=== PATIENT | male | born 2000 | race African-American/Black ===

== ENCOUNTER 2022-10-22 08:17 | Outpatient (AMB) | payer OTHER, SELFPAY ==
[2022-10-22 08:29] VITALS: BP 138/85; PULSE 78; BMI 31.7
--- NOTE | 2022-10-22 08:29 | MHC.OFFVIS ---
Intake Vital Signs 10/22/22 08:29 Height 6 ft 2 in Weight 247 lb BMI 31.7 BP 138/85 Blood Pressure Location Rt brachial Position Sitting Pulse 78 Intake Visit Reasons: Consult for muscle biopsy Intake Note: Patient here for possible muscle bx. Was recently diagnosed with Rhabdomyolysis. Discharge from hospital 4d ago. Feels sore and experiencing fatigue. Patient with hx of sickle cell anemia. Since rhabdo diagnosis football was placed on hold. 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 He has his 3 of sickle cell trait and hypertension. He denies symptoms prior to this year while playing football. Symptoms began in August after training. After rest and relaxation for approximately 1 week the symptoms improved. He once again began to train and was doing fine until last week well training during the hot weather, again developed diffuse muscle cramping starting in the legs extending into the abdomen than the entire body. He was brought in, cooled down and subsequently sent to [facility]. The patient was found to have stage II kidney disease in August with an elevated creatinine kinase level of 1190. Creatinine was 1.69, BUN 20, calcium 10.4, AST 41. He was subsequently admitted to [facility] for 2 days and diagnosed with rhabdomyolysis. He presents today to discuss possible muscle biopsy. He reports his were symptoms are on the left leg and left arm but currently feels improved. [facility] Medical History (Updated 10/22/22 @ 08:44 by Jori Aguilar MD) History of rhabdomyolysis History of sickle cell trait Surgical History History of shoulder surgery Social History Alcohol intake: never Patient Tobacco Use Status: Never used Tobacco Review of Systems Const All systems reviewed & are unremarkable except as noted in HPI and below Denies chills, Denies fever(s), Denies headache(s), Denies poor appetite and Denies weakness ENT Denies headache(s) Card Denies chest pain, Denies irregular heart rhythm, Denies palpitations and Denies dyspnea Resp Denies cough, Denies excessive phlegm production and Denies dyspnea GI Reports abdominal pain, Denies bloating, Denies change in bowel habits, Denies constipation, Denies heartburn, Denies diarrhea, Denies nausea and Denies vomiting Denies difficulty urinating and Denies urinary frequency Musc Denies back pain, Reports muscle cramps, Denies muscle weakness and Denies numbness Skin/Breast Denies changing lesions and Denies unusual bruising Neuro Denies headache(s), Denies numbness, Denies paresthesias and Denies weakness Psych Denies anxiety and Denies depression Endo Denies palpitations Kareem/Lymph Denies lymphadenopathy Physical Exam Vital Signs: Last Vital Signs Pulse 78 10/22/22 08:29 BP 138/85 10/22/22 08:29 BMI result Body Mass Index 31.7 Const General: cooperative and no acute distress Nutritional Appearance: well nourished Orientation/consciousness: patient oriented x3 Limitations: no limitations HEENT Head: Yes normocephalic and Yes atraumatic Ears: hearing grossly normal bilaterally Resp Effort & Inspection: normal respiratory effort, no audible wheezes, no cough and no respiratory distress Cardio Jugular venous distension: no JVD GI Inspection: Yes normal to inspection Skin Other: Warm, dry, no rash Neuro General: patient oriented x3 Extrem General: Yes no clubbing, cyanosis or edema Assessment & Plan Assessment & Plan (1) History of rhabdomyolysis: Code(s): Z87.39 - Personal history of other diseases of the musculoskeletal system and connective tissue (2) History of sickle cell trait: Code(s): Z86.2 - Personal history of diseases of the blood and blood-forming organs and certain disorders involving the immune mechanism Plan 22-year-old male patient with a recent history of rhabdomyolysis presenting with diffuse muscle cramping and elevated myoglobin, creatinine kinase and creatinine levels. Patient presents today to discuss a muscle biopsy. Will plan on a left arm muscle biopsy as a short-stay surgery and will range to the pathology department. I reviewed the procedure, risks, and alternatives, he consents to the surgery. Coding Level of Care Code New Pt Level 4 (20455) Diagnoses History of rhabdomyolysis Z87.39 History of sickle cell trait Z86.2
== END 2022-10-22 08:39 | disposition home or self-care (01) ==
PROVIDERS: Visit Provider Surgery
DX: Z87.39 Personal history of other diseases of the musculoskeletal system and connective tissue (principal); D57.3 Sickle-cell trait; N18.2 Chronic kidney disease, stage 2 (mild)
CPT/HCPCS: 99204

== ENCOUNTER → 2022-10-22 08:17 | Outpatient (BNVA) | payer OTHER, SELFPAY | PROVIDERS: Visit Provider Surgery ==

== ENCOUNTER 2022-11-18 14:16 | Outpatient (REF) | payer OTHER, SELFPAY ==
--- NOTE | ~2022-11-18 | MR_ITS ---
EXAMINATION: MR KNEE WITHOUT CONTRAST, RIGHT CLINICAL INFORMATION: Knee pain, status post injury. COMPARISON: None available. TECHNIQUE: MRI of the knee without contrast was performed using routine sequences on a high-field scanner. FINDINGS: MENISCI: MEDIAL MENISCUS: Intact. LATERAL MENISCUS: Intact. LIGAMENTS: CRUCIATE: There is T2 signal in the posterior fibers of the ACL. The ACL otherwise demonstrates normal orientation. This could reflect sprain/partial tear. PCL appears intact. COLLATERAL: There is evidence of prominent posterolateral corner injury. Abnormal edema, ill-definition and nonvisualization of the distal biceps femoris tendon suggestive of a tear, which may be high-grade or full-thickness in nature. Tear of the proximal fibular collateral ligament, which may be high-grade or full-thickness in nature. Strain/partial tearing of the popliteus muscle and myotendinous region, with prominent edema. The popliteus tendon demonstrates mild edema, possible strain. The popliteofibular ligament is not well seen, with edema in this region, concerning for tear. The fabellofibular ligament is not well visualized. Edema in the posterolateral capsule and in the region of the arcuate ligament, concerning for injury/tear. No definite Segond fracture is identified, correlate with x-ray. There is mild edema in the proximal fibular head. A subtle avulsion fracture of the fibular head is difficult exclude on MRI, correlate with x-ray. There is a prominent edema in the soft tissues and muscles in the posterolateral aspect of the knee. This includes prominent edema in the soleus muscle, and in the soft tissues in this region. Edema/fluid in the interfascial planes. The iliotibial band is grossly intact. Edema associated with the MCL could reflect reactive edema versus sprain. There is edema along the course of the common peroneal nerve, question mild edema in the nerve. Nerve injury cannot be excluded. EXTENSOR MECHANISM: Mild distal quadriceps tendinosis. No focal tear. Patellar tendon is intact. ARTICULAR CARTILAGE/BONE: PATELLOFEMORAL COMPARTMENT: No significant cartilage loss. MEDIAL COMPARTMENT: Edema in the anteromedial aspect of the medial femoral condyle, from bone contusion and possible undisplaced fracture/trabecular microfracture. Edema from bone contusion in the anteromedial aspect of the tibial plateau. No focal cartilage loss. LATERAL COMPARTMENT: Prominent edema in the anterior aspect of the lateral tibial plateau from bone contusion and possible undisplaced curvilinear fracture/trabecular microfracture. Bone contusion in the lateral aspect of the lateral femoral condyle. No focal cartilage loss. JOINT FLUID AND BURSAE: Small effusion. Tiny Enriquez's cyst. Possible mild semimembranosus tendinosis. There is circumferential subcutaneous edema. MR/MR knee RT wo con IMPRESSION: 1. Abnormal findings with evidence of posterolateral corner injury. More prominent abnormal findings include; abnormal findings suggest tear of the distal biceps femoris tendon, which may be high-grade or full-thickness. Abnormal findings suggest tear of the proximal aspect of the fibular collateral ligament, which may be high-grade or full-thickness. Strain/partial tearing of the popliteus muscle and myotendinous region. Possible popliteus tendon strain. Possible tear of the popliteofibular ligament. Suspected injury/tear of the arcuate ligament/posterolateral capsule. Recommend correlation with x-ray to exclude avulsion fracture from the fibular head. Prominent edema in the soft tissues and muscles in the posterolateral aspect of the knee. This includes prominent soleus muscle edema/strain/interstitial tearing. Recommend orthopedic consultation, and management. Repeat/follow up imaging for reassessment as clinically warranted. 2. ACL findings could represent sprain/partial tear. 3. MCL findings could reflect reactive edema or sprain. 4. Edema associated with the common peroneal nerve, nerve injury cannot be excluded. 5. Mild distal quadriceps tendinosis. 6. Medial femoral condyle, anteromedial bone contusion with possible undisplaced fracture/trabecular microfractures. Bone contusion in the anteromedial aspect of the medial tibial plateau. 7. Bone contusion with possible undisplaced curvilinear fracture/trabecular microfracture in the anterior aspect of the lateral tibial plateau. Bone contusion in the lateral aspect of the lateral femoral condyle. 8. Small joint effusion. 9. Possible mild semimembranosus tendinosis. 10. No definite meniscal tear is identified. 11. Additional findings and details as above. The report will be called to the ordering clinician by a [facility] Physician Weed Controller.
== END 2022-11-18 14:17 | disposition home or self-care (01) ==
LOC: HO.MRI 14:16
PROVIDERS: PCP Family Medicine Sports Medicine; Visit Provider Family Medicine Sports Medicine
DX: S80.911A Unspecified superficial injury of right knee, initial encounter (principal)
CPT/HCPCS: 73721